=== PATIENT | female | born 1945 | race African-American/Black ===

== ENCOUNTER 2019-01-30 11:52 | Observation (INO) | payer MEDICARE, MEDICAID ==
[~2019-01-30] VITALS: Ht 158.8 cm; Wt 63.2 kg
--- NOTE | ~2019-01-30 | HEMODYNAMI ---
PATIENT:RADHA LEIJA MEDICAL RECORD: [id number] : 49 LOCATION:[facility] D.2115 ADMISSION DATE: 01/30/19 Generatedon:01/31/201916:32 Patient name: RADHA LEIJA Patient #: [id number] SSN: : 1945 Date of study: 01/31/2019 Page: Of Hemodynamic Procedure Report Patient Data Patient Demographics Procedure consent was obtained First Name: RADHA Gender: Female Last Name: HELADIO : 1945 Patient #: [id number] Age: 73 year(s) Race: Black Additional ID: [id number] Contact details [address]: [address] [place] [address] State: [place] City: [place] Zip code: [address] Past Medical History Allergies Allergen Reaction Date Comments Reported Codeine 01/31/2019 Admission Admission Data Admission Date: 01/30/2019 Admission Time: 18:04 Room #: D.2115 Procedure Procedure Types Cath Procedure Diagnostic Procedure LHC LHC w/Coronaries Procedure Description Procedure Date Procedure Date: 01/31/2019 Procedure Start Time: 16:21 Procedure End Time: 16:29 Procedure Staff Name Function Gato Sal MD Performing Physician Silke Frankel RT Monitor Rashawn Granado RT Scrub Jessica Larose RN Nurse Procedure Data Cath Procedure Fluoroscopy Diagnostic fluoroscopy Total fluoroscopy Time: 1.2 time: 1.2 min min Diagnostic fluoroscopy Total fluoroscopy dose: 270 dose: 270 mGy mGy Contrast Material Contrast Material Type Amount (ml) Isovue 300 66 Entry Location Entry Primary Successful Side Size Upsize Upsize Entry Closure Succes sful Closure Location (Fr) 1 (Fr) 2 (Fr) Remarks Device Remarks Femoral Right 5 Fr Exoseal artery Estimated blood loss: 5 ml Diagnostic catheters Device Type Used For End Catheter Placement MULTIPACK JL 4.0 5Fr Left Coronary catheter Angiography MULTIPACK 3DRC 5Fr Right Coronary catheter Angiography MULTIPACK Pigtail 5 Fr Multi-vessel catheter Angiography Procedure Complications No complications Procedure Medications Medication Administration Route Dosage 0.9% NaCl I.V. 100 ml/hr Oxygen etCO2 Nasal cannula 2 l/min Lidocaine 2% added to field 20 Heparin Flush Bag added to field 2 bags (1000units/500ml NS) Versed I.V. 2 mg Fentanyl I.V. 50 mcg Fentanyl I.V. 25 mcg Versed I.V. 1 mg Hemodynamics Rest Heart Rate: 69 (bpm) Pressure Samples Time Site Value (mmHg) Purpose Heart Use Rate(bpm) 16:25 LV 205/20,105 Snapshot 62 16:26 AO 139/72(99) Pullback 62 16:26 LV 144/20,25 Pullback 62 Gradients Valve Time Site 1 Site 2 Mean SEP/DFP Peak To Heart Use (mmHg) (sec/min) Peak Rate (mmHg) (bpm) Aortic 16:26 LV AO 4 15 5 62 144/20,25 139/72(99) Calculations Valve P-P Mean Valve Index Valve Source Name Gradient Area Flow (cm2) Aortic 5 4 5 4 Snapshots Pre Cath Intra NCS Post Cath Vital Signs Time Heart Resp SPO2 etCO2 NIBP (mmHg) Rhythm Pain Sedation Rate (ipm) (%) (mmHg) Status Level (bpm) 15:49:41 81 25 100 22.5 190/99(153) NSR 0 (11) 10(A) , No pain 15:54:12 77 29 100 27 202/100(150) NSR 0 (11) 10(A) , No pain 15:58:40 68 22 99 32.3 161/85(128) NSR 0 (11) 10(A) , No pain 16:03:12 64 21 100 32.3 164/86(115) NSR 0 (11) 10(A) , No pain 16:07:43 62 20 100 32.3 151/81(122) NSR 0 (11) 10(A) , No pain 16:12:11 62 21 100 31.5 152/81(124) NSR 0 (11) 9(A) , No pain 16:16:37 59 20 100 33 151/76(120) NSR 0 (11) 9(A) , No pain 16:21:06 59 19 100 33.1 141/70(100) NSR 0 (11) 9(A) , No pain 16:25:34 63 39 100 33 143/68(118) NSR 0 (11) 10(A) , No pain Medications Time Medication Route Dose Verified Delivered Reason Notes Eff ectiveness by by 15:47:52 0.9% NaCl I.V. 100 Gato Jessica used for ml/hr [facility] procedure MD MEMBRENO 15:48:00 Oxygen etCO2 2 Gato Jessica used for Nasal l/min [facility] procedure cannula MD MEMBRENO 15:48:04 Lidocaine 2% added 20ml Gato Hoskins for local to vial [facility] anesthetic field MD FELDMAN 15:48:09 Heparin Flush added 2 Gato Gato used for Bag to bags [facility] procedure (1000units/500ml field MD FELDMAN NS) 16:06:28 Versed I.V. 2 mg Gato Jessica for [place] [facility] sedation MD MEMBRENO 16:06:44 Fentanyl I.V. 50 Gato Jessica for mcg [place] [facility] sedation MD MEMBRENO 16:11:05 Versed I.V. 1 mg Gato Jessica for [facility] sedation MD MEMBRENO 16:11:52 Fentanyl I.V. 25 Gato Jessica for Replaced by [facility] sedation MD MEMBRENOdirector speech language Log Time Note 15:27:21 Diagnostic Cath Status : Elective 15:27:53 Rashawn Suit RT(R) sent for patient. Start room use. 15:27:54 Time tracking: Regular hours (M-F 7:00 - 5:00) 15:27:58 Plan of Care:Hemodynamics will remain stable., Cardiac rhythm will remain stable., Comfort level will be maintained., Respiratory function will remain adequate., Patient/ family verbilizes understanding of procedure., Procedure tolerated without complication., Recovers from procedure without complications.. 15:44:45 Patient received from Med II to CCL 1 Alert and oriented. Tansferred to table in Supine position. 15:44:46 Warm blankets applied, and bashir hugger turned on for patient comfort. 15:44:46 Correct patient and procedure confirmed by team. 15:44:48 Signed procedure consent form obtained from patient. 15:44:49 ECG and BP/O2 sat monitors applied to patient. 15:47:31 Vital chart was started 15:47:32 Baseline sample Acquired. 15:47:35 Rhythm: sinus rhythm 15:47:36 Full Disclosure recording started 15:47:38 H&P Date Dictated: 01/31/2019 Within 30 days and on chart.. 15:47:39 Pre-procedure instructions explained to patient. 15:47:39 Pre-op teaching completed and patient verbalized understanding. 15:47:41 Family in patients room. 15:47:42 Patient NPO since Midnight. 15:47:52 0.9% NaCl 100 ml/hr I.V. was administered by Jessica Larose RN; used for procedure; 15:47:53 Patient allergic to Codeine 15:47:55 Is the patient allergic to Iodine/contrast media? No. 15:48:00 Oxygen 2 l/min etCO2 Nasal cannula was administered by Jessica Larose RN; used for procedure; 15:48:00 Is patient on blood thinner?No 15:48:04 Lidocaine 2% 20ml vial added to field was administered by Gato Sal MD; for local anesthetic; 15:48:09 Heparin Flush Bag (1000units/500ml NS) 2 bags added to field was administered by Gato Sal MD; used for procedure; 15:48:43 Patient diabetic? No. 15:48:45 Previous problem with sedation/anesthesia? No ? 15:48:47 Snore? Yes 15:48:48 Sleep apnea? No 15:48:49 Deviated septum? No 15:48:51 Opens mouth fully? Yes 15:48:51 Sticks out tongue? Yes 15:49:00 Airway obstruction? Yes sarcoidosis 15:49:04 Dentures? Yes out 15:50:24 Pre procedure: right dorsailis pedis pulse 2+ Normal; easily identifiable; not easily obliterated 15:50:27 Pre procedure: left dorsailis pedis pulse 2+ Normal; easily identifiable; not easily obliterated 15:50:28 Patient pain scale 0/10 ?. 15:50:36 IV patent on arrival in left forearm with 0.9% NaCl at [facility]. 15:50:43 Lab results completed and on chart. 15:50:51 Right groin area was prepped with chlora-prep and draped in sterile fashion 15:50:53 Alarms reviewed by R. N. 15:50:53 Sharps counted by scrub and verified by R.N. 16:05:28 Physician arrived 16::29 --------ALL STOP TIME OUT------ 16:05:29 Final Timeout: patient, procedure, and site verified with staff and physician. All members of the team are in agreement. 16:05:32 Right groin site verified by team. 16:05:37 Maximum allowable Isovue 300 dose 300ml. Physician notified. (300ml for normal creatinines. For patients with creatinine of 1.7 or higher multiply weight(kg) x 5 divided by creatinine.) 16:05:42 Fire Safety Assessment: A--An alcohol-based skin anteseptic being used preoperatively., C--Open oxygen or nitrous oxide is being used., D--An ESU, laser, or fiber-optic light is being used. 16:05:46 Physical assessment completed. ASA score P 2 - A patient with mild systemic disease as per Gato Sal MD. 16:05:50 Sedation plan: IV Moderate Sedation Medication:Versed, Fentanyl 16:05:54 Use device set Femoral Dx 16:05:55 ACIST Syringe (95553) opened to sterile field. 16:05:56 Bag Decanter (2002S) opened to sterile field. 16:05:56 Medline Cath Pack ([id number]) opened to sterile field. 16:05:56 DIAGNOSTIC WIRE .035 260cm J wire (931311) opened to sterile field. 16:05:58 ACIST Hand Control (59360) opened to sterile field. 16:05:58 ACIST Manifold (23540) opened to sterile field. 16:05:59 DIAGNOSTIC Multipack 5Fr catheter set ([id number]) opened to sterile field. 16:05:59 Tegaderm 4 x 4 (1626W) opened to sterile field. 16:06:00 SHEATH 5FR Dakota (SAD742) opened to sterile field. 16:06:28 Versed 2 mg I.V. was administered by Jessica Larose RN; for sedation; 16:06:44 Fentanyl 50 mcg I.V. was administered by Jessica Larose RN; for sedation; 16:11:05 Versed 1 mg I.V. was administered by Jessica Larose RN; for sedation; 16:11:52 Fentanyl 25 mcg I.V. was administered by Jessica Larose RN; for sedation; 16:21:14 Procedure started. 16:21:39 Local anesthetic to right femoral artery with Lidocaine 2% by Gato Sal MD.INITIAL ACCESS ONLY 16:21:47 A 5 Fr sheath was inserted into the Right Femoral artery 16:22:24 A MULTIPACK JL 4.0 5Fr catheter was advanced over the wire and used for Left Coronary Angiography. 16:22:53 LCA angiography performed. 16:22:58 Injector settings: Ml/sec: 3, Volume: 6, 16:23:23 Catheter removed. 16:23:28 A MULTIPACK 3DRC 5Fr catheter was advanced over the wire and used for Right Coronary Angiography. 16:24:09 RCA angiography performed. 16:24:12 Injector settings: Ml/sec: 3, Volume: 6, 16:24:26 Catheter removed. 16:25:27 A MULTIPACK Pigtail 5 Fr catheter was advanced over the wire and used for Multi-vessel Angiography. 16:25:50 LV hemodynamics recorded. 16:25:51 LV gram done using SOLER 16:25:54 Injector settings: Ml/sec: 5, Volume: 15, 16:26:01 EF : 30 % 16:26:17 Catheter removed. 16:26:46 EXOSEAL 5Fr (EX500) opened to sterile field. 16:27:11 Sheath removed intact; hemostasis achieved with Exoseal to the Right Femoral artery. 16:27:13 Procedure ended.(Physican Out) 16:27:25 Fluoroscopy time 01.20 minutes. 16:27:33 Fluoroscopy dose: 270 mGy 16:27:33 Flurop Dose total: 270 16:28:00 Contrast amount:Isovue 300 66ml. 16:28:02 Sharps counted by scrub and verified by R.N. 16:28:05 Insertion/operative site no bleeding no hematoma. 16:28:09 Post-op/insertion site Right Femoral artery dressed using a 4 x 4 and Tegaderm. 16:28:12 Post procedure rhythm: unchanged. 16:28:15 Estimated blood loss: 5 ml 16:28:17 Post procedure instruction explained to patient.Patient verbalizes understanding. 16:28:17 Patient needs reinforcement of post procedure teaching. 16:28:23 Procedure and supply charges have been captured, reviewed, submitted and are correct. 16:28:28 Procedure Complication : No complications 16:28:30 Vital chart was stopped 16:28:30 See physician's report for complete and final results. 16:29:00 Report given to Med II. 16:29:03 Patient transfered to Med II with Stretcher. 16:29:06 Procedure ended. 16:29:06 Full Disclosure recording stopped 16:29:10 End room use (Document Last) Device Usage Item Name Manufacture Quantity Catalog Hospital Part Current Minimal L ot# / Number Charge Number Stock Stock Serial# Code ACIST Acist 1 42088 260303 792649 007423 20 Syringe Medical (94642) Systems Inc Bag Microtek 1 2001S 417716 44348 364467 5 Decanter Medical Inc. () Medline Medline 1 [id number] 072407 44033 018323 5 Cath Pack ([id number]) DIAGNOSTIC St Med 1 552931 109354 365887 819651 30 WIRE .035 260cm J wire (946547) ACIST Hand Acist 1 22184 203801 287231 117498 5 Control Medical (91481) Systems Inc ACIST Acist 1 15654 985491 376172 740023 5 Manifold Medical (22617) Systems Inc DIAGNOSTIC Cardinal 1 SP1216 869008 80078 721207 30 Multipack Health 5Fr catheter set (JG4680) Tegaderm 4 3M 1 1626W 222279 836822 228024 5 x 4 (1626W) SHEATH 5FR Terumo 1 SEY229 839334 397625 530474 5 Dakota (ALC354) MULTIPACK Cardinal 1 961759 5 JL 4.0 5Fr Health catheter MULTIPACK Cardinal 1 031344 5 3DRC 5Fr Health catheter MULTIPACK Cardinal 1 895287 5 Pigtail 5 Health Fr catheter EXOSEAL 5Fr Cardinal 1 EX500 673928 895440 598885 10 (EX500) Health Signature Audit [place] Stage Time Signature Unsigned Intra-Procedure 01/31/2019 Silke Frankel 4:32:01 PM RT(R) Signatures Monitor : Silke Frankel RT Signature : Date : Time : [facility] [address] [place] [address]
[2019-01-30] MEDS ORDERED: ZYLOPRIM100 MG PO (12:06)
[2019-01-30] MEDS ORDERED: COZAAR100 MG PO (12:06)
[2019-01-30] MEDS ORDERED: HYDROCHLOROTH12.5 M1 PO (12:06)
[2019-01-30] MEDS ORDERED: LOW DOSE ASPIRI81 M1 PO (12:07)
[2019-01-30] MEDS ORDERED: BAYER ASPIRIN325 MG (12:07)
[2019-01-30 13:23] LABS: BASOPHILS 0.2 % (0-2); EOSINOPHILS 0.6 % (0-7); HEMATOCRIT 31.3 % (36.0-48.0); HEMOGLOBIN 10.1 g/dL (12-16); LYMPHOCYTES 30.4 % (15-50); MCH 28.1 pg (26.0-34.0); MCHC 32.3 g/dL (31.0-37.0); MCV 87.2 fL (80.0-100.0); MEAN PLATELET VOLUME 11.7 fL (7.4-10.4); MONOCYTES 4.9 % (2-11); NEUTROPHILS 63.9 % (40-80); PLATELET COUNT 245 10x3/uL (130-400); RBC 3.59 10x6/uL (4.00-5.40); RDW 13.6 % (11.5-14.5); WBC 4.9 10x3/uL (4.8-10.8)
[2019-01-30 13:36] LABS: APTT 29.5 SECONDS (22.8-39.4); INR 1.16 (0.85-1.17); PROTIME 14.3 SECONDS (11.6-15.0)
[2019-01-30 13:56] LABS: ALBUMIN 3.4 g/dL (3.4-5.0); ALKALINE PHOSPHATASE 114 U/L (46-116); ALT (SGPT) 14 U/L (10-68); BILIRUBIN - TOTAL 1.02 mg/dL (0.2-1.3); CALC OSMOLALITY 291 mosm/kg (275-300); CALCIUM 8.3 mg/dL (8.5-10.1); CARBON DIOXIDE 26.5 mmol/L (21.0-32.0); CHLORIDE - SERUM 109 mmol/L (98-107); GLUCOSE 115 mg/dL (74-106); POTASSIUM - SERUM 3.3 mmol/L (3.5-5.1); PROTEIN - SERUM 6.9 g/dL (6.4-8.2); SODIUM 145 mmol/L (136-145); UREA NITROGEN 18 mg/dL (7-18); eGFR NON AFRICAN AMERICAN 58 mL/min (90-120)
[2019-01-30 14:00] LABS: MAGNESIUM - SERUM 1.6 mg/dL (1.8-2.4)
[2019-01-30 14:01] LABS: CREATINE KINASE 193 UL (21-215); TROPONIN-I < 0.017 ng/mL (0.000-0.060)
[2019-01-30 14:06] LABS: CKMB 1.8 U/L (0.0-3.6)
[2019-01-30 17:11] VITALS: BP 104/68
[2019-01-30 18:52] VITALS: BP 159/72
[2019-01-30 19:13] LABS: CKMB 28.2 U/L (0.0-3.6)
[2019-01-30 19:19] LABS: CREATINE KINASE 432 UL (21-215)
[2019-01-30 19:21] LABS: TROPONIN-I 0.132 ng/mL (0.000-0.060)
[2019-01-30 23:03] VITALS: BP 158/94; Ht 158.8 cm; Wt 63.2 kg
[2019-01-31] VITALS: BP 158/94
[2019-01-31 01:30] LABS: CKMB 57.4 U/L (0.0-3.6)
[2019-01-31 01:38] LABS: CREATINE KINASE 677 UL (21-215)
[2019-01-31 01:39] LABS: TROPONIN-I 0.483 ng/mL (0.000-0.060)
[2019-01-31 04:00] VITALS: BP 147/86
[2019-01-31 06:50] LABS: BASOPHILS 0.1 % (0-2); EOSINOPHILS 0.4 % (0-7); HEMOGLOBIN 10.6 g/dL (12-16); IMMATURE GRANULOCYTES 0.3 % (0-5); LYMPHOCYTES 25.2 % (15-50); MCH 27.8 pg (26.0-34.0); MCHC 32.1 g/dL (31.0-37.0); MCV 86.6 fL (80.0-100.0); MEAN PLATELET VOLUME 12.4 fL (7.4-10.4); MONOCYTES 8.8 % (2-11); NEUTROPHILS 65.2 % (40-80); PLATELET COUNT 266 10x3/uL (130-400); RBC 3.81 10x6/uL (4.00-5.40); RDW 13.8 % (11.5-14.5)
[2019-01-31 06:53] LABS: WBC 7.6 10x3/uL (4.8-10.8)
[2019-01-31 07:16] LABS: ALBUMIN 3.3 g/dL (3.4-5.0); ALKALINE PHOSPHATASE 116 U/L (46-116); ALT (SGPT) 17 U/L (10-68); BILIRUBIN - TOTAL 0.84 mg/dL (0.2-1.3); CALC OSMOLALITY 285 mosm/kg (275-300); CALCIUM 8.3 mg/dL (8.5-10.1); CARBON DIOXIDE 26.2 mmol/L (21.0-32.0); CHLORIDE - SERUM 105 mmol/L (98-107); CHOL - HDL RATIO 3.3 ratio (2.3-4.1); CHOLESTEROL, TOTAL 185 mg/dL (0-200); CKMB 74.8 U/L (0.0-3.6); CREATININE - SERUM 1.1 mg/dL (0.6-1.3); GLUCOSE 117 mg/dL (74-106); HDL CHOLESTEROL 57 mg/dL (32-96); LDL CHOLESTEROL 117 mg/dL (0-100); LDL-HDL RATIO 2.1 ratio (1.5-3.5); POTASSIUM - SERUM 3.2 mmol/L (3.5-5.1); PROTEIN - SERUM 7.2 g/dL (6.4-8.2); SODIUM 142 mmol/L (136-145); TRIGLYCERIDE 58 mg/dL (30-200); UREA NITROGEN 17 mg/dL (7-18); eGFR NON AFRICAN AMERICAN 52 mL/min (90-120)
[2019-01-31 07:17] LABS: CREATINE KINASE 879 UL (21-215)
[2019-01-31 07:18] LABS: TROPONIN-I 1.067 ng/mL (0.000-0.060)
--- NOTE | 2019-01-31 08:28 | HP ---
PATIENT: RADHA LEIJA MEDICAL RECORD: [id number] ACCOUNT: [id number] LOCATION:[address] : [birth year] ADMISSION DATE: 01/30/19 PCP: MG ANDREWS MD HISTORY AND PHYSICAL EXAMINATION DATE OF ADMISSION: 01/30/2019 CHIEF COMPLAINT: Chest pain. HISTORY OF PRESENT ILLNESS: This is a 73-year-old -[place]ong[place] female who was shopping at [employer] today when she experienced a sudden onset of substernal chest pain. She states she had similar pain about a month ago. It was an achy type pressure pain, but there was a component of sharpness. She did not have any accompanying shortness of breath or diaphoresis. The pain did not radiate to her neck or out to either arm. She was brought in to the Emergency Department via EMS. She was given nitroglycerin in the ambulance ride that did relieve her pain. She is admitted for further evaluation of her chest pain. PAST MEDICAL AND SURGICAL HISTORY: Gout, hypertension, reflux, osteoarthritis, anemia, and breast cancer. PAST SURGICAL HISTORY: Lumpectomy, cholecystectomy, thyroidectomy, right rotator cuff repair and a right hemicolectomy due to a large noncancerous polyp. ALLERGIES: CODEINE. HOME MEDICATIONS: Allopurinol 100 mg once a day, potassium 8 mEq once a day, and losartan 100 mg once a day. FAMILY HISTORY: Father at 33 of uncertain causes. Mother at 77. She had arthritis and cancer. SOCIAL HISTORY: The patient is and retired. HABITS: Never smoked. No alcohol or drugs. REVIEW OF SYSTEMS: GENERAL: No major weight changes. HEENT: No particular sinus or allergy problems. RESPIRATORY: No history of asthma or emphysema. CARDIAC: She had a cardiac evaluation several years ago and reportedly had an angiogram that was negative. GASTROINTESTINAL: She has heartburn at times. GENITOURINARY: No significant problems there. NEUROLOGIC: No migraines. No seizure disorder. PSYCHIATRIC: No depression or melancholia. PHYSICAL EXAMINATION: VITAL SIGNS: Temperature 97.9, pulse 77, respirations 18, blood pressure 159/72 while she is still in the ER. She is awake and alert, does not appear in acute distress. HEENT: Grossly within normal limits. NECK: Supple. No bruit. HEART: Regular rate and rhythm without murmur. LUNGS: Clear. HISTORY AND PHYSICAL [id number] RADHA LEIJA ABDOMEN: Soft, nontender. EXTREMITIES: No edema. NEUROLOGIC: Seems intact. LABORATORY DATA: Lab work done in the ER, CBC with a white count of 4900, hemoglobin 10.1, hematocrit 31.3 with normal indices and normal differential. INR 1.16, sodium 145, potassium 3.3, chloride 109, CO2 of 26.5, BUN 18, creatinine 1.0, glucose 115, calcium 8.3, magnesium 1.6. Liver enzymes were all normal. Troponin 0.017. Repeat troponin at 18:08 has gone up to 0.132. EKG showed normal sinus rhythm, nonspecific ST-T wave changes. ASSESSMENT: 1. Chest pain. 2. Non-ST elevated myocardial infarction. PLAN: Cardiology has been consulted and they are planning to take her to the radiographer cardiac catheterization tomorrow morning. We will check lipid profile. Echo has been ordered, sublingual nitro p.r.n. Nitro paste has been ordered. A repeat troponin in the morning. Repeat EKG in morning. Other tests or procedures as warranted. TRANSINT:[id number] Voice Confirmation ID: [id number] DOCUMENT ID: [id number] MG ANDREWS MD at 0828 CC: [id number] DICTATION DATE: 01/30/192304 STRAIGHTEDGE MAN: 01/31/19 0023 ADM IN [place] [id number] [place] [id number]
[2019-01-31 13:01] VITALS: BP 123/66
--- NOTE | 2019-01-31 14:51 | EC ---
PATIENT:RADHA LEIJA DATE OF SERVICE: 01/30/19 SEX: F MEDICAL RECORD: [id number] DATE OF : 49 LOCATION:D.M2 D.211 AGE OF PATIENT: 73 ADMISSION DATE: 01/30/19 REFERRING PHYSICIAN: INTERPRETING PHYSICIAN: ECHO MASTERSON MD ECHOCARDIOGRAM REPORT ECHO CHARGES 4 ECHO COMPLETE Date: 01/31/19 CLINICAL DIAGNOSIS: ECHOCARDIOGRAPHIC MEASUREMENTS (adult normal given) AC root (d.<3.7cm) 2.2 cm LV Septum d (<1.2 cm> 0.6 cm Valve Excursion 1.6 cm LV Septum (systole) 1.1 cm Left Atria (s.<4.0cm> 3.4 cm LVPW d(<1.2cm) 1.2 cm RV (d.<2.3cm) 2.2 cm LVPW (sytole) 1.7 cm LV diastole(<5.6CM) 5.6 cm MV E-F(>70mm/sec) cm LV systole 4.0 cm LVOT Diameter 1.7 cm MV exc.(>10mm) cm Est.ejection fraction (50-75%) % DOPPLER: LVIT cm/sec A 94 cm/sec E 97 cm/sec LA cm/sec RVSP 29.8 mmHg LVOT 118 cm/sec AOP1/2T m/s Asc. Ao 185 cm/sec RVOT 70 cm/sec RA cm/sec PA 80 cm/sec AV Gradient Peak 13.7 mmHg AV Mean 7.3 mmHg AV Area 1.4 cm MV Gradient Peak 3.6 mmHg MV Mean 1.8 mmHg MV Area cm COMMENTS: Book Salesman: Bere [facility] Hand Spray Operator: 3 Dr. Cruz TAPE# PACS Pericardial Effusion N DATE OF SERVICE: Adequate 2D, color flow, spectral Doppler, and M-mode. No LVH. LV internal dimensions are normal. Wall motion normal. EF is greater than or equal to 55%. Aortic valve sclerosis without evidence of stenosis on Doppler interrogation. Left atrium is normal at 3.4 cm. Mitral valve shows prolapse. Trace MR. Right-sided chambers grossly normal. Mild TR. TRANSINT:[id number] Voice Confirmation ID: [id number] DOCUMENT ID: [id number] ECHOCARDIOGRAM REPORT [id number] RADHA LEIJA ECHO MASTERSON MD at 1451 CC: [id number] DICTATION DATE: 01/31/19 1240 ELECTRICAL ASSEMBLY TECHNICIAN: 01/31/19 1250 ADM IN [place] [id number] [place] [address]
[2019-01-31 20:00] VITALS: BP 173/69
[2019-02-01] VITALS: BP 141/82
[2019-02-01 04:00] VITALS: BP 144/70
[2019-02-01 09:37] VITALS: BP 165/70
[2019-02-01 12:27] VITALS: BP 164/70
--- NOTE | 2019-02-01 13:38 | OP ---
PATIENT NAME: RADHA LEIJA MEDICAL RECORD: [id number] :49 LOCATION:D.M2 D.2115 ADMISSION DATE:01/30/19 SURGEON: ECHO MASTERSON MD DATE OF OPERATION: 01/31/2019 PROCEDURE: Left heart catheterization, selective coronary angiography, right femoral artery approach. CATHETERS: A 5-Croatian sheath, 5/4 left and right Harry, 5/4 pig. The procedure was well tolerated. The patient was returned to [facility]. Sheath was removed. ExoSeal device was placed. FINDINGS: Left ventriculography in 30-degree SOLER view shows global hypokinesis. Overall LV function reduced to 30% to 35%. CORONARY ANATOMY: LEFT MAIN: Left main is free of disease. LAD: Free of disease in the diagonal system. CIRCUMFLEX: Free of disease in the marginal system. RIGHT CORONARY ARTERY: Dominant artery, gives rise to PDA, free of disease. IMPRESSION: Findings are most consistent with hypertensive cardiomyopathy. ARB, beta-melony, etc. for blood pressure control. TRANSINT:[id number] Voice Confirmation ID: [id number] DOCUMENT ID: [id number] ECHO MASTERSON MD at 1338 CC: [id number] DICTATION DATE: 01/31/19 1631 NUT TAPPER: 01/31/19 1832 ADM IN [facility] [address] [place] [address]
[2019-02-01] MEDS ORDERED: COREG 3.1253.125 MG PO (14:26)
== END 2019-02-01 16:31 | disposition home or self-care (01) ==
LOC: D.ER 11:52 → D.M2 18:04 → D.EDHOLD 18:04 → OBSVTIME 18:05 → D.M2 18:51
PROVIDERS: Family Medicine; ADMIT Family Medicine; ATTEND Family Medicine
DX: I21.4 Non-ST elevation (NSTEMI) myocardial infarction (principal); I11.9 Hypertensive heart disease without heart failure; I43 Cardiomyopathy in diseases classified elsewhere; E83.42 Hypomagnesemia; E87.6 Hypokalemia